=== PATIENT | female | born 1950 | race Two or more races ===

== ENCOUNTER 2024-12-13 04:01 | Inpatient (IN) | payer OTHER, MEDICAID ==
[~2024-12-13] VITALS: Ht 157.5 cm; Wt 59.1 kg
[2024-12-13] MEDS ORDERED: EPINEPHrine HCL 250 ML IV ONE (04:10)
--- NOTE | 2024-12-13 04:24 | ED.PDOC ---
CPR-HPI HPI Comments 74 y/o F, with a limited known history of pulmonary fibrosis on supplemental oxygen, cardiomyopathy, and osteoarthritis on hospice, is BIBA from private residence for c/c of cardiac arrest. Per EMS personnel report, call received at 0304 by family after finding patient unresponsive on the floor after using the bathroom . The patient was brought to the bedroom, started on oxygen via mask maximum rate. Family Contacted 911. Family members noted patient's respiratory rate starting to decline. EMS arrived on scene at 0314. No bystander CPR performed prior to EMS arrival. Patient was, initially, apneic and pulseless, a blood glucose of 259, and no signs of trauma. Interventions en route: 13x rounds of CPR, 6x epinephrine rounds (last administered at 0353), 1x Calcium, 1x Bicarb, and 7.0 endotracheal tube placement at 23cm at the teeth. 1x shock for 1x incidence of V-fib transition prior to returning to asystole at 0350. Arrival to ED at 0357, with a estimated total downtime of 50-60 minutes. Care resume by ED staff. Family/sprinkler inspector historians absent. Additional noted history of DNR; EMS personnel reports on family not having DNR/DNI documentation on scene. Initial Physical exam General: Patient is unresponsive HEENT: Pupils fixed, dilated, nonreactive. There is no corneal reflex. Cardiac: No pulses palpated Abdomen: Soft, nondistended Respiratory: No spontaneous respirations, no breath sounds auscultated Extremities: No edema Neuro: GCS 3, patient is unresponsive to painful stimulus, ROS: Unable to obtain Time Seen by MD: 03:57 Reviewed Notes: Nurses Notes, Reel Hooker Notes, Medications, Allergies Allergies: Coded Allergies: Morphine (Verified Allergy, Unknown, 12/13/24) Information Source: Emergency Med Personnel Mode of Arrival: EMS Timing: Hours Duration: Down time prior EMS: (12-15 minutes ), Total time prior hopital: (50- 60 minutes) Onset: Other (unwitnessed ) Available Hx: Prior Cardiac Disease Inital rhythm: Asystole Treatment: CPR, Intubation, Defibrillation, Epinephrine, Other (Calcium and bicarbonate ) Response: No response Associated signs and symptoms: None Past Medical History PAST MEDICAL HISTORY: Arthritis (osteoarthritis) Past Medical History (Other): cardiomyopathy pulmonary fibrosis Surgical History: Unknown, Unobtainable SUPERVISOR [employer] History: Unknown, Unobtainable Family History Family History: Unknown, Unobtainable Social History Smoker: Unknown, Unobtainable Alcohol: Unknown, Unobtainable Drugs: Unknown, Unobtainable Lives In: Home, Assisted Care Was a procedure done? Was a procedure done?: Yes Sedation Sedation?: No Central Line Recorder of insertion practice: Mds Coordinator Occupation of diversified crops i farmworker: Attending Physician Indication: Volume resuscitation, Inability to obtain IV Room prepared for procedure: Yes Mds Coordinator performed hand hygien: Yes Maximal sterile barrier precau: Mask/Eye shield, Sterile gown, Cap, Sterlie gloves, Large sterlie drape Skin Preparation: Chlorhexidine gluconate, Providine iodine, Alcohol Skin preparation completely dr: Yes Insertion site: Right, Femoral Central line catheter type: [id number]-rnikvbry-viz dialysis Number of lumens: 3 Central line exchanged over a: No Antiseptic ointment applied to: No Post Assessment: Chest X-Ray, Proper placement Informed consent obtained: Yes Risks/benefits/alt described: Yes Differential Dx CPR Differential Diagnosis: Cardiopulmonary arrest, Dysrhythmia, Electrolyte disorder, Heart Block, Myocardial Infarction, Pulmonary Embolus, Respiratory Failure X-Ray, Labs, Meds, VS Vital Signs Date Time Temp Pulse Resp B/P (MAP) Pulse Ox O2 Delivery O2 Flow Rate FiO2 12/13/24 08:40 95.2 106 21 117/46 (69) 95 95.2 12/13/24 08:15 107 34 108/75 (86) 95 100 12/13/24 08:15 108/75 12/13/24 08:15 108/75 12/13/24 08:15 108/75 12/13/24 08:15 108/75 12/13/24 08:00 106 12/13/24 07:42 208.6 0 0 0 Ambu-Bag 0 0 12/13/24 07:35 104 14 96 Mechanical Ventilator+ 100 100 12/13/24 07:35 93.7 104 14 120/38 (65) 96 93.7 12/13/24 07:15 112/55 12/13/24 07:15 112/55 12/13/24 07:06 101 12/13/24 07:00 93.4 96 13 88/53 (65) 97 93.4 12/13/24 07:00 /53 12/13/24 07:00 88/53 12/13/24 06:45 93.0 99 13 92/34 (53) 97 93.0 12/13/24 06:30 92.8 98 13 91/41 (58) 97 92.8 12/13/24 06:15 92.8 98 13 86/30 (48) 97 92.8 12/13/24 06:15 86/30 12/13/24 06:15 86/30 12/13/24 06:07 Mechanical Ventilator+ 100 100 12/13/24 06:00 92.8 97 14 97/30 (52) 94 92.8 12/13/24 06:00 97/30 12/13/24 05:53 97 27 94/29 (50) 98 100 12/13/24 05:45 93.0 97 14 95/26 (49) 94 93.0 12/13/24 05:30 93.2 94 24 88/29 (48) 94 93.2 12/13/24 05:15 93.6 94 24 106/35 (58) 95 93.6 12/13/24 05:15 102/33 12/13/24 05:11 95 12/13/24 05:00 94.6 99 24 126/46 (72) 87 94.6 12/13/24 05:00 126/46 12/13/24 04:45 95.0 71 24 75/27 (43) 87 95.0 12/13/24 04:45 79/27 12/13/24 04:30 60 24 100/68 (79) 86 100 12/13/24 04:21 60 12/13/24 04:06 98.1 135 20 53/17 (29) 93 98.1 12/13/24 04:01 98.1 0 0 0/0 0 98.1 Lab Test 12/13/24 07:35 12/13/24 06:01 12/13/24 05:30 12/13/24 05:00 Range/Units Lactic Acid Level 10.6 *H 11.9 *H 0.4-2.0 mmol/L Troponin I High Sensitivity 2695 *H 687 *H </=34 ng/L Blood Gas Specimen Type Arterial Blood Gas Sample Site Left brachial Blood Gas Patient Temperature 37.0 Arterial Blood Date Drawn [id number] Arterial Blood pH 6.922 *L 7.350-7.450 Arterial Blood Partial Pressure CO2 64.0 *H 32.0-45.0 mmHg Arterial Blood Partial Pressure O2 130.1 H 83.0-108.0 mmHg Arterial Blood HCO3 12.9 L 21.0-28.0 mmol/L Arterial Blood Oxygen Saturation 95.7 94.0-98.0 % Arterial Blood Base Excess -19.6 L -2.0-3.0 mmol/L Arterial Blood Oxyhemoglobin 94.6 94.0-98.0 % Arterial Blood Carboxyhemoglobin 0.3 L 0.5-1.5 % Arterial Blood Methemoglobin 0.9 0.0-1.5 % Enrique Test N/a Blood Gas Total Hemoglobin 11.40 L 12.0-16.0 g/dL Blood Gas Set Respiration Rate 24.0 Blood Gas Modality Vent - ac FiO2 % 100.0 Blood Gas Tidal Volume 300.0 Blood Gas PEEP or CPAP 5.0 Blood Gas Critical Value Read Back yes Blood Gas Notified Whom peter Luis md Blood Gas Notified Time [id number] Blood Gas Notified By Manufacturing Cost Estimator dane diaz Prothrombin Time 20.5 H 9.3-11.8 sec Prothrombin Time INR 2.08 H 0.9-1.15 Influenza Type A Antigen Negative Negative Influenza Type B Antigen Negative Negative SARS-CoV-2 Antigen (Rapid) Negative NEGATIVE Test 12/13/24 04:09 Range/Units White Blood Count 22.5 H 4.4-10.8 10^3/uL Red Blood Count 3.56 L 4.0-5.20 10^6/uL Hemoglobin 10.5 L 12.2-16.2 g/dL Hematocrit 34.4 L 36.0-46.0 % Mean Corpuscular Volume 96.5 80.0-100.0 fL Mean Corpuscular Hemoglobin 29.4 28.0-32.0 pg Mean Corpuscular Hemoglobin Concent 30.4 L 32.0-36.0 g/dL Red Cell Distribution Width 17.1 H 11.8-14.3 % Platelet Count 82 L 140-450 10^3/uL Mean Platelet Volume 8.6 6.9-10.8 fL Neutrophils (%) (Auto) 37.0-80.0 % Lymphocytes (%) (Auto) 10.0-50.0 % Monocytes (%) (Auto) 0.0-12.0 % Basophils (%) (Auto) 0.0-2.0 % Neutrophils # (Auto) 1.6-8.6 10 ^3/uL Lymphocytes # (Auto) 0.4-5.4 10 ^3/uL Monocytes # (Auto) 0-1.3 10 ^3/uL Differential Total Cells Counted 100.0 100 Neutrophils % (Manual) 28 L 37.0-80.0 Band Neutrophils % (Manual) 2 Lymphocytes % (Manual) 58 H 10.0-50.0 Monocytes % (Manual) 8 0-12 Eosinophils % (Manual) 3 0-7 Basophils % (Manual) 0 0.0-2.0 Metamyelocytes % (manual) 0 Myelocytes % (Manual) 1 Promyelocytes % (Manual) 0 Blast Cells % (Manual) 0 Reactive Lymphocytes 0 Platelet Estimate Decreased Sodium Level 147 H 136-145 mmol/L Potassium Level 5.4 H 3.5-5.1 mmol/L Chloride Level 105 98-107 mmol/L Carbon Dioxide Level 23 20-31 mmol/L Anion Gap 19 H 5-15 Blood Urea Nitrogen 19 9-23 mg/dL Creatinine 1.02 0.550-1.02 mg/dL Glomerular Filtration Rate Calc 58 >90 mL/min BUN/Creatinine Ratio 18.6 10.0-20.0 Serum Glucose 208 H 74-106 mg/dL Calcium Level 9.6 8.7-10.4 mg/dL Magnesium Level 2.6 1.6-2.6 mg/dL Total Bilirubin 0.5 0.2-1.0 mg/dL Aspartate Amino Transferase (AST) 5194 H 13-40 U/L Alanine Aminotransferase (ALT) 2779 H 7-40 U/L Alkaline Phosphatase 136 H 46-116 U/L Troponin I High Sensitivity 33 </=34 ng/L B-Type Natriuretic Peptide 249.94 0-100 pg/mL Total Protein 5.5 L 5.7-8.2 g/dL Albumin 2.9 L 3.2-4.8 g/dL Lipase 31 12-53 U/L Thyroid Stimulating Hormone (TSH) 13.76 H 0.55-4.78 uIU/mL Plasma/Serum Blood Alcohol < 3.0 <10 mg/dL Current Medications Medications (Trade) Dose Ordered Sig/Asif Route Start Time Stop Time Status Last Admin Norepinephrine Bitartrate 250 ml @ 3.75 mls/hr Q24H IV 12/13/24 04:45 12/13/24 17:25 DC 12/13/24 10:15 Epinephrine HCl 250 ml @ 7.5 mls/hr Q24H IV 12/13/24 05:00 12/13/24 17:25 DC 12/13/24 05:00 Ceftriaxone Sodium 50 ml @ 100 mls/hr ONCE ONCE IV 12/13/24 05:30 12/13/24 05:59 DC 12/13/24 06:00 Vasopressin 20 units/Sodium Chloride 100 ml @ 9 mls/hr Q11H7M IV 12/13/24 05:45 12/13/24 17:25 DC 12/13/24 06:15 Sodium Chloride 1,000 ml @ 130 mls/hr Q7H42M IV 12/13/24 06:30 12/13/24 09:07 DC 12/13/24 06:30 Phenylephrine HCl 250 ml @ 30 mls/hr Q8H20M IV 12/13/24 07:00 12/13/24 17:25 DC 12/13/24 07:00 Time of 1ST Reevaluation: 04:27 Reevaluation 1ST: Unchanged Patient Education/Counseling: Pt Unresponsive Family Education/Counseling: Other SEPSIS Sepsis Screen Physician Orders Chest Xray 1 View (12/13/24 04:08) Blood Culture (12/13/24 04:08) Ventilator Setup (12/13/24 04:26) Chest Portable (12/13/24 05:53) Vital Signs Date Time Temp Pulse Resp B/P (MAP) Pulse Ox O2 Delivery O2 Flow Rate FiO2 12/13/24 08:40 95.2 106 21 117/46 (69) 95 95.2 12/13/24 08:15 107 34 108/75 (86) 95 100 12/13/24 08:15 108/75 12/13/24 08:15 108/75 12/13/24 08:15 108/75 12/13/24 08:15 108/75 12/13/24 08:00 106 12/13/24 07:42 208.6 0 0 0 Ambu-Bag 0 0 12/13/24 07:35 104 14 96 Mechanical Ventilator+ 100 100 12/13/24 07:35 93.7 104 14 120/38 (65) 96 93.7 12/13/24 07:15 112/55 12/13/24 07:15 112/55 12/13/24 07:06 101 12/13/24 07:00 93.4 96 13 88/53 (65) 97 93.4 12/13/24 07:00 88/53 12/13/24 07:00 88/53 12/13/24 06:45 93.0 99 13 92/34 (53) 97 93.0 12/13/24 06:30 92.8 98 13 91/41 (58) 97 92.8 12/13/24 06:15 92.8 98 13 86/30 (48) 97 92.8 12/13/24 06:15 86/30 12/13/24 06:15 86/30 12/13/24 06:07 Mechanical Ventilator+ 100 100 12/13/24 06:00 92.8 97 14 97/30 (52) 94 92.8 12/13/24 06:00 97/30 12/13/24 05:53 97 27 94/29 (50) 98 100 12/13/24 05:45 93.0 97 14 95/26 (49) 94 93.0 12/13/24 05:30 93.2 94 24 88/29 (48) 94 93.2 12/13/24 05:15 93.6 94 24 106/35 (58) 95 93.6 12/13/24 05:15 102/33 12/13/24 05:11 95 12/13/24 05:00 94.6 99 24 126/46 (72) 87 94.6 12/13/24 05:00 126/46 12/13/24 04:45 95.0 71 24 75/27 (43) 87 95.0 12/13/24 04:45 79/27 12/13/24 04:30 60 24 100/68 (79) 86 100 12/13/24 04:21 60 12/13/24 04:06 98.1 135 20 53/17 (29) 93 98.1 12/13/24 04:01 98.1 0 0 0/0 0 98.1 Laboratory Tests Test 12/13/24 04:09 12/13/24 05:30 12/13/24 07:35 White Blood Count 22.5 10^3/uL (4.4-10.8) H Lactic Acid Level 11.9 mmol/L (0.4-2.0) *H 10.6 mmol/L (0.4-2.0) *H Departure 1 Departure Time of Disposition: 05:24 Impression: Primary Impression: Cardiac arrest with successful resuscitation Additional Impressions: Pulmonary fibrosis CHF (congestive heart failure) Disposition: ADMITTED INPATIENT Condition: Critical Comments MDM 74 year old female presented to the ED in Cardiac arrest with resuscitation efforts in progress. Cardiac compressions were continued by staff in order to sustain blood flow. The patient was ventilated and oxygenated. The patient received appropriate ACLS measures and these were repeated as necessary throughout the resuscitation. CPR was performed under my direct supervision and guidance. See patient resuscitation status note for medications and times given. Critical care time spent > 30 minutes in coordination of efforts for cardiopulmonary resuscitation. Family members were notified of the patients status and prognosis. After ROSC patient was started on epinephrine drip then levophed drip for hypotension. IVF administered carefully due to history of CHF and suspected pulmonary edema on CXR. Patient admitted to hospitalist service for further treatment, evaluation and monitoring. Critical Care Note Critical Care Time?: Yes (55 min-critical care time only) Critical care comment: Due to a high probability of clinically significant, life threatening deterioration, the patient required my highest level of preparedness to intervene emergently and I personally spent this critical care time directly and personally managing the patient. This critical care time included obtaining a history; examining the patient; pulse oximetry; ordering and review of studies; arranging urgent treatment with development of a management plan; evaluation of patient's response to treatment; frequent reassessment; and, discussions with other providers. This critical care time was performed to assess and manage the high probability of imminent, life-threatening deterioration that could result in multi-organ failure. It was exclusive of separately billable procedures and treating other patients and teaching time. Please see my other sections and the rest of the note for further information on patient assessment and treatment. Heart Score Heart Score: Heart Score Response (Comments) Value History N/A 0 EKG N/A 0 Age N/A 0 Risk Factors N/A 0 Troponin N/A 0 Total 0 Stability Stability form required: KIMI Patterson MD Dec 13, 2024 04:24
[2024-12-13] MEDS ORDERED: NOREPINEPHRINE 8 MG/250ML KIT 250 ML IV SCH (04:45)
[2024-12-13] MEDS: NOREPINEPHRINE 8 MG/250ML KIT 250 ML IV SCH (04:45)
[2024-12-13 04:50] LABS: Anion Gap 19 (5-15); BUN/Creatinine Ratio 18.6 (10.0-20.0); Blood Urea Nitrogen 19 mg/dL (9-23); Calcium 9.6 mg/dL (8.7-10.4); Carbon Dioxide 23 mmol/L (20-31); Chloride 105 mmol/L (98-107); Glucose 208 mg/dL (74-106); Potassium 5.4 mmol/L (3.5-5.1); Sodium 147 mmol/L (136-145)
[2024-12-13 04:51] LABS: Albumin 2.9 g/dL (3.2-4.8); Bilirubin, Total 0.5 mg/dL (0.2-1.0); Magnesium 2.6 mg/dL (1.6-2.6); Total Protein 5.5 g/dL (5.7-8.2)
[2024-12-13] MEDS: NOREPINEPHRINE 8 MG/250ML KIT 250 ML IV ONE (04:52)
[2024-12-13 04:55] LABS: Hematocrit 34.4 % (36.0-46.0); Hemoglobin 10.5 g/dL (12.2-16.2); Mean Corpuscular Hemoglobin 29.4 pg (28.0-32.0); Mean Corpuscular Volume 96.5 fL (80.0-100.0)
--- NOTE | 2024-12-13 04:57 | DVH ---
CHEST RADIOGRAPH Indication: AMS Technique: Single frontal view of the chest was obtained COMPARISON: None FINDINGS: Lines and Tubes: Endotracheal tube tip directed within the left mainstem bronchus, approximately 6 mm distal to the level of the criselda. Enteric catheter terminates just beyond the level of the gastroes ophageal junction. Lungs: Diffuse interstitial and pulmonary vascular prominence and multifocal bilateral pulmonary airs pace disease. No definite evidence of pleural effusion. No pneumothorax. Cardiomediastinal contours: Unremarkable Bones: Unremarkable IMPRESSION: 1. Endotracheal tube tip directed within the left mainstem bronchus, approximately 6 mm distal to the level of the criselda. Recommend retraction by at least 2 cm. 2. Enteric catheter terminates just beyond the level of the gastroesophageal junction. Recommend adva ncement by 5 cm. 3. Diffuse interstitial and pulmonary vascular prominence and multifocal bilateral pulmonary airspace disease.
[2024-12-13] MEDS: EPINEPHrine HCL 250 ML IV SCH (05:00)
[2024-12-13] MEDS ORDERED: MIDAZOLAM DRIP 50 mg/50mL 50 ML IV SCH (05:15)
[2024-12-13 05:18] LABS: Lipase 31 U/L (12-53)
[2024-12-13 05:22] LABS: Alkaline Phosphatase 136 U/L (46-116)
--- NOTE | 2024-12-13 05:30 | ECG ---
[facility] Test Date: 2024-12-13 Test Time: 05:11:20 Pat Name: CARLOS JOY Department: [facility] ED Room: [address] [place] [address] Gender: F Airline Counter Agent: LUIS : 1950 Requested By: KIMI HALE Order Number: [id number] Reading MD: Ji Jaimes Measurements Intervals [place] Rate: 95 P: 66 VT: 146 QRS: 109 QRSD: 83 T: 0 QT: 407 QTc: 512 Interpretive Statements Sinus rhythm Right axis deviation Low voltage, extremity leads Abnormal R-wave progression, late transition Minimal ST depression, diffuse leads Prolonged QT interval Electronically Signed On 12-19-2024 13:46:55 PDT by Ji Jaimes Please click the below link to view image of tracing.
--- NOTE | 2024-12-13 05:30 | ECG ---
[facility] Test Date: 2024-12-13 Test Time: 04:21:03 Pat Name: CARLOS JOY Department: [facility] ED Room: [address] [place] [address] Gender: F Leach Cell Operator: LUIS : 1950 Requested By: KIMI HALE Order Number: [id number] Reading MD: Ji Jaimes Measurements Intervals [place] Rate: 60 P: -81 MA: 142 QRS: 117 QRSD: 119 T: -36 QT: 514 QTc: 514 Interpretive Statements Ectopic atrial rhythm Incomplete right bundle branch block Probable posterior infarct, acute Consider inferior wall MD, acute Electronically Signed On 12-19-2024 13:46:47 PDT by Ji Jaimes Please click the below link to view image of tracing.
[2024-12-13 05:34] LABS: Total Cells Counted 100.0 (100)
[2024-12-13 06:13] LABS: INR 2.08 (0.9-1.15); Prothrombin Time 20.5 sec (9.3-11.8)
[2024-12-13] MEDS: VASOPRESSIN 20 UNITS in SODIUM CHL 0.9% 99 ML IV SCH (06:15)
[2024-12-13 06:19] LABS: Base Excess -19.6 mmol/L (-2.0-3.0)
[2024-12-13 06:19] LABS: COVID19 ANTIGEN SOFIA FIA NEGATIVE (NEGATIVE)
[2024-12-13] MEDS: VASOPRESSIN 20 UNIT/ML ONE (06:19)
[2024-12-13 06:29] LABS: Lactic Acid w/Reflex 11.9 mmol/L (0.4-2.0)
[2024-12-13] MEDS: SODIUM CHLORIDE 0.9% 1,000 ML IV SCH (06:30)
[2024-12-13 06:34] LABS: Alanine Aminotransferase 2779 U/L (7-40)
--- NOTE | 2024-12-13 06:57 | DVH ---
CHEST RADIOGRAPH Indication: ETT RETRACTION Technique: Single frontal view of the chest was obtained COMPARISON: XY CHEST XRAY 1 VIEW on DOS: 12/13/24 FINDINGS: Lines and Tubes: Endotracheal tube remains low in position projecting towards the left mainstem bronc hus. Enteric catheter in satisfactory position. Lungs: Severe multifocal airspace disease. Pleura: No effusion. No pneumothorax. Cardiomediastinal contours: Unremarkable Bones: Unremarkable IMPRESSION: Endotracheal tube remains low in position projecting towards the left mainstem bronchus. Recommend retraction by 2 cm.
[2024-12-13] MEDS: PHENYLEPHRINE IV 250 ML IV SCH (07:00)
[2024-12-13 07:35] VITALS: PULSE 104; RESP 14; O2SAT 96
--- NOTE | 2024-12-13 07:42 | RESUS ---
CODE BLUE ASSESSSMENT History of Events History of Events: 74 y/o F, with a limited known history of pulmonary fibrosis on supplemental oxygen, cardiomyopathy, and osteoarthritis on hospice, is BIBA from private residence for c/c of cardiac arrest. Per EMS personnel report, call received at 0304 by family after finding patient unresponsive on the floor after using the bathroom . The patient was brought to the bedroom, started on oxygen via mask maximum rate. Family Contacted 911. Family members noted patient's respiratory rate starting to decline. EMS arrived on scene at 0314. No bystander CPR performed prior to EMS arrival. Patient was, initially, apneic and pulseless, a blood glucose of 259, and no signs of trauma. Interventions en route: 13x rounds of CPR, 6x epinephrine rounds (last administered at 0353), 1x Calcium, 1x Bicarb, and 7.0 endotracheal tube placement at 23cm at the teeth. 1x shock for 1x incidence of V-fib transition prior to returning to asystole at 0350. Arrival to ED at 0357, with a estimated total downtime of 50-60 minutes. Care resume by ED staff. Family/track repairer helper historians absent. Additional noted history of DNR; EMS personnel reports on family not having DNR/DNI documentation on scene. Initial Information Date: Dec 13, 2024 Time: 03:57 Location of Arrest: In Field Arrest Witnessed: Yes CPR started initial time: 03:14 CPR started by whom: EMS Pre-Hospital Care: ACLS Type of arrest: Cardiac, Respiratory, Adult, Unwitnessed Spontaneous Respirations: No Pulse Present: No Monitoring: ECG, Pulse Oximetry, Apnea, Telemetry Crash Cart Opened and Supplies: Yes Airway Ventilation Breathing at Onset: Apneic O2 Sat by Pulse Oximetry: 0 Oxygen Delivery Method: Ambu-Bag Oxygen 100% Time of first Assisted Ventila: 03:58 Intubation Time: 03:58 Intubation Size: 7.0 cuffed Intubated by: DR HALE Intubation Attempts: 1 Intubated orally: Yes Intubated Nasaly: No Tube secured at: 23 Cricoid pressure done: No CO2 indicator used: Yes Confirmation: Auscultation Suctioning (Oral/Tracheal): No Circulation Circulation : Time: 03:57 Pulse Rate (adult): 0 Blood Pressure Systolic: 0 Blood Pressure Diastolic: 0 Temperature (Fahrenheit): 098.1 Procedure - IV Procedure - IV : IV start time: 03:59 IV Side: Left IV Location: Antecubital IV Catheter Type: Saline Lock IV Placed by GRECIA GILLIAM IV Gauge: 20 IV Line Care: Saline Flush Procedure - Intraosseous Site of Intraosseous: Tibia yelena-medial Comment: DONE BY EMS PRIOR TO ARRIVAL Medications & Response Medications and Responses #1: Medication Time: 03:59 ADULT Medications Given ADULT: Epinephrine 1 mg, Sodium Bacarbinate 50 meq, Magnesium Sulfate 2 gm Route of Administration: IO Heart Rate: 0 EKG Rhythm: Asystole Blood Pressure Systolic: 0 Blood Pressure Diastolic: 0 Respiratory Rate: 0 O2 Sat by Pulse Oximetry: 0 Comment 0402 ROSC P 165, BP 58/17 [address]406 AMIODORONE [address] HALE. 0407 NO PULSE Medications and Responses #2: Medication Time: 04:07 ADULT Medications Given ADULT: Epinephrine 1 mg Route of Administration: IV Heart Rate: 0 EKG Rhythm: PEA Blood Pressure Systolic: 0 Blood Pressure Diastolic: 0 Respiratory Rate: 0 O2 Sat by Pulse Oximetry: 0 EKG Rhythm: PEA Comment 0410 NO PULSE Medications and Responses #3: Medication Time: 04:10 ADULT Medications Given ADULT: Epinephrine 1 mg Route of Administration: IV Heart Rate: 0 EKG Rhythm: PEA Blood Pressure Systolic: 0 Blood Pressure Diastolic: 0 Respiratory Rate: 0 O2 Sat by Pulse Oximetry: 0 EKG Rhythm: Atrial Fibrillation Comment 0413 ROSCHR 72 A FIB BP 100/68 PT STARTED ON EPINEPHRINE DRIP. 0422 BRADYCARDIC ATROPINE 1MG GIVEN, 0423 NO PULSE Medications and Responses #4: Medication Time: 04:23 ADULT Medications Given ADULT: Epinephrine 1 mg Route of Administration: IV Heart Rate: 0 EKG Rhythm: PEA Blood Pressure Systolic: 0 Blood Pressure Diastolic: 0 Respiratory Rate: 0 O2 Sat by Pulse Oximetry: 0 EKG Rhythm: Sinus Rhythm Comment 0426 ROSC HR 91 BP144/70 SAT 95 Pacing Pacer Pads Applied and Pacing: Yes Procedure - Central Venous Cat Central venous catheter time: 04:23 Central venous catheter site: Rt Femoral Central Venous Catheter Insert: DR NOVAK Nurses Notes [place] Coma Scale Eye Opening: None (1) [place] Coma Scale Verbal: None (1) [place] Coma Scale Motor: None (1) Pupil Reaction: Non Reactive EKG Rhythm: Sinus Rhythm Time Code Ended Time Code Ended: 04:26 Post Arrest Status: Ventilated Outcome of code: Successful Code Team Present: CARA HEART RN HS, MIKE LOOP CUTTER, RULA RN, MIREILLE RN, VALENTINO RN,HANS ERT, OTILIO ERT, LISA RT, BRAULIO RT, LISA RT. Post Resuscitation Neurologica Pupil Size: 4 ROSC Pt Meets Criteria for Therapeu: No Therapeutic Hyperthermia Start: CARA Murillo Dec 13, 2024 07:42
--- NOTE | 2024-12-13 09:33 | DVHHP2 ---
History of Present Illness Reason for Visit: CPR History of Present Illness Virginie Whiting is a 74-year-old female with past medical history of pulmonary fibrosis, and CHF, who was brought to the hospital VIA EMS with CPR in progress. The family states she was discharged home on hospice from [place] about 2 weeks ago. This morning she got up to use the restroom and on her way back she fell to the ground. Her daughter was there and states she did not respond to her and just had a blank stare. She called for her other siblings to help. They called the hospice company and were told there was nothing to do. So they then called EMS. When EMS arrived the family told them she is a DNR, but did not have the paperwork readily available so EMS states they had to do everything. Patient was brought to the ER, intubated, CPR continued. Patient had multiple code blues while in the ER. The ER provider did speak with the family and make the patient a DNR. On my arrival and assessment the patient was intubated, on 4 vasopressors, and no sedation with no meaningful neurological responses. Family was at the bedside and states that she never wanted any of this and would like to make her comfortable. Will do a compassionate extubation once all family is able to arrive. Cardiovascular: CHF Pulmonary: Other (Pulmonary Fibrosis) Smoke: No ALCOHOL: none Drugs: None Lives: with Family Domestic Violence: Neg Review of Systems Allergies: Coded Allergies: Morphine (Verified Allergy, Unknown, 12/13/24) Medications Current Medications Medications Dose Ordered Sig/Asif Route Start Time Stop Time Status Last Admin Dose Admin Norepinephrine Bitartrate 250 ml @ 3.75 mls/hr Q24H IV 12/13/24 04:45 12/13/24 04:45 18.75 MLS/HR Epinephrine HCl 250 ml @ 7.5 mls/hr Q24H IV 12/13/24 05:00 12/13/24 05:00 37.5 MLS/HR Midazolam HCl 50 ml @ 1 mls/hr Q24H IV 12/13/24 05:15 Vasopressin 20 units/Sodium Chloride 100 ml @ 9 mls/hr Q11H7M IV 12/13/24 05:45 12/13/24 06:15 9 MLS/HR Sodium Chloride 1,000 ml @ 130 mls/hr Q7H42M IV 12/13/24 06:30 12/13/24 06:30 130 MLS/HR Phenylephrine HCl 250 ml @ 30 mls/hr Q8H20M IV 12/13/24 07:00 12/13/24 07:00 30 MLS/HR Exam Vital Signs Vital Signs Date Time Temp Pulse Resp B/P (MAP) Pulse Ox O2 Delivery O2 Flow Rate FiO2 12/13/24 08:00 106 12/13/24 07:42 208.6 0 0 Ambu-Bag 0 12/13/24 07:35 100 100 12/13/24 07:35 120/38 (65) Respiratory: Other (Intubated) Psych/Mental Status: Other (Intubated, not sedated, no meaningful neurological responses) Labs/Xrays Labs Test 12/13/24 07:35 12/13/24 06:01 12/13/24 05:30 12/13/24 05:00 Range/Units Lactic Acid Level 10.6 *H 0.4-2.0 mmol/L Troponin I High Sensitivity 2695 *H </=34 ng/L Blood Gas Specimen Type Arterial Blood Gas Sample Site Left brachial Blood Gas Patient Temperature 37.0 Arterial Blood Date Drawn [id number] Arterial Blood pH 6.922 *L 7.350-7.450 Arterial Blood Partial Pressure CO2 64.0 *H 32.0-45.0 mmHg Arterial Blood Partial Pressure O2 130.1 H 83.0-108.0 mmHg Arterial Blood HCO3 12.9 L 21.0-28.0 mmol/L Arterial Blood Oxygen Saturation 95.7 94.0-98.0 % Arterial Blood Base Excess -19.6 L -2.0-3.0 mmol/L Arterial Blood Oxyhemoglobin 94.6 94.0-98.0 % Arterial Blood Carboxyhemoglobin 0.3 L 0.5-1.5 % Arterial Blood Methemoglobin 0.9 0.0-1.5 % Enrique Test N/a Blood Gas Total Hemoglobin 11.40 L 12.0-16.0 g/dL Blood Gas Set Respiration Rate 24.0 Blood Gas Modality Vent - ac FiO2 % 100.0 Blood Gas Tidal Volume 300.0 Blood Gas PEEP or CPAP 5.0 Blood Gas Critical Value Read Back yes Blood Gas Notified Whom peter Luis md Blood Gas Notified Time [id number] Blood Gas Notified By Functional Tester dane diaz Prothrombin Time 20.5 H 9.3-11.8 sec Prothrombin Time INR 2.08 H 0.9-1.15 Influenza Type A Antigen Negative Negative Influenza Type B Antigen Negative Negative SARS-CoV-2 Antigen (Rapid) Negative NEGATIVE Test 12/13/24 04:09 Range/Units White Blood Count 22.5 H 4.4-10.8 10^3/uL Red Blood Count 3.56 L 4.0-5.20 10^6/uL Hemoglobin 10.5 L 12.2-16.2 g/dL Hematocrit 34.4 L 36.0-46.0 % Mean Corpuscular Volume 96.5 80.0-100.0 fL Mean Corpuscular Hemoglobin 29.4 28.0-32.0 pg Mean Corpuscular Hemoglobin Concent 30.4 L 32.0-36.0 g/dL Red Cell Distribution Width 17.1 H 11.8-14.3 % Platelet Count 82 L 140-450 10^3/uL Mean Platelet Volume 8.6 6.9-10.8 fL Neutrophils (%) (Auto) 37.0-80.0 % Lymphocytes (%) (Auto) 10.0-50.0 % Monocytes (%) (Auto) 0.0-12.0 % Basophils (%) (Auto) 0.0-2.0 % Neutrophils # (Auto) 1.6-8.6 10 ^3/uL Lymphocytes # (Auto) 0.4-5.4 10 ^3/uL Monocytes # (Auto) 0-1.3 10 ^3/uL Differential Total Cells Counted 100.0 100 Neutrophils % (Manual) 28 L 37.0-80.0 Band Neutrophils % (Manual) 2 Lymphocytes % (Manual) 58 H 10.0-50.0 Monocytes % (Manual) 8 0-12 Eosinophils % (Manual) 3 0-7 Basophils % (Manual) 0 0.0-2.0 Metamyelocytes % (manual) 0 Myelocytes % (Manual) 1 Promyelocytes % (Manual) 0 Blast Cells % (Manual) 0 Reactive Lymphocytes 0 Platelet Estimate Decreased Sodium Level 147 H 136-145 mmol/L Potassium Level 5.4 H 3.5-5.1 mmol/L Chloride Level 105 98-107 mmol/L Carbon Dioxide Level 23 20-31 mmol/L Anion Gap 19 H 5-15 Blood Urea Nitrogen 19 9-23 mg/dL Creatinine 1.02 0.550-1.02 mg/dL Glomerular Filtration Rate Calc 58 >90 mL/min BUN/Creatinine Ratio 18.6 10.0-20.0 Serum Glucose 208 H 74-106 mg/dL Calcium Level 9.6 8.7-10.4 mg/dL Magnesium Level 2.6 1.6-2.6 mg/dL Total Bilirubin 0.5 0.2-1.0 mg/dL Aspartate Amino Transferase (AST) 5194 H 13-40 U/L Alanine Aminotransferase (ALT) 2779 H 7-40 U/L Alkaline Phosphatase 136 H 46-116 U/L B-Type Natriuretic Peptide 249.94 0-100 pg/mL Total Protein 5.5 L 5.7-8.2 g/dL Albumin 2.9 L 3.2-4.8 g/dL Lipase 31 12-53 U/L Thyroid Stimulating Hormone (TSH) 13.76 H 0.55-4.78 uIU/mL Plasma/Serum Blood Alcohol < 3.0 <10 mg/dL CHEST RADIOGRAPH FINDINGS: Lines and Tubes: Endotracheal tube remains low in position projecting towards the left mainstem bronchus. Enteric catheter in satisfactory position. Lungs: Severe multifocal airspace disease. Pleura: No effusion. No pneumothorax. Cardiomediastinal contours: Unremarkable Bones: Unremarkable IMPRESSION: Endotracheal tube remains low in position projecting towards the left mainstem bronchus. Recommend retraction by 2 cm. SEPSIS Sepsis Screen Date sepsis recognized/suspect: Dec 13, 2024 Time Sepsis recognized/suspect: 0735 Recent Procedure: No On Antibiotic Therapy: No Respiratory Rate >20: No Heart Rate >90: Yes Temp<36 C (96.8 F) or >38.3 C: Yes SBP <90 or MAP <65 mmHG: No New Acute Mental Status Change: Yes Is the patient on CPAP, BIPAP,: Yes Physician Orders Drug Screen (12/13/24 04:08) Urinalysis (12/13/24 04:08) Head Without Contrast (12/13/24 04:08) Chest Xray 1 View (12/13/24 04:08) Blood Culture (12/13/24 04:08) Abg W/ Co-Ox (12/13/24 04:08) Saline Lock (12/13/24 04:08) Quantitative Analyst Developer (12/13/24 ) Straight Cath. (12/13/24 ) Electrocardigram (12/13/24 21:21) Electrocardigram (12/13/24 05:08) Electrocardigram (12/13/24 07:08) Electrocardigram (12/13/24 05:08) Electrocardigram (12/13/24 05:08) Electrocardigram (12/13/24 07:08) Abg W/ Co-Ox (12/13/24 04:26) Respiratory Culture W/ Gs (12/13/24 04:26) Ventilator Setup (12/13/24 04:26) Norepinephrine 8 Mg/250ml Kit (Levophed) (12/13/24 04:45) Epinephrine Hcl (12/13/24 05:00) Midazolam Drip 50 Mg/50ml (Versed Drip 5 (12/13/24 05:15) Rass Sedation Scale Q1HR (12/13/24 05:09) Sodium Chl 0.9% (So... W/Vasopressin (12/13/24 05:45) Communication Order (12/13/24 04:45) Communication Order (12/13/24 05:00) Communication Order (12/13/24 05:15) Chest Portable (12/13/24 05:53) Sodium Chloride 0.9% (12/13/24 06:30) Phenylephrine Iv (Phenylephrine/Ns) (12/13/24 07:00) Admit (12/13/24 08:52) Code Status (12/13/24 08:52) Npo (Nothing By Mouth) Diet (12/13/24 Breakfast) Condition: Unstable (12/13/24 08:52) Vital Signs Date Time Temp Pulse Resp B/P (MAP) Pulse Ox O2 Delivery O2 Flow Rate FiO2 12/13/24 08:00 106 12/13/24 07:42 208.6 0 0 0 Ambu-Bag 0 0 12/13/24 07:35 104 14 96 Mechanical Ventilator+ 100 100 12/13/24 07:35 93.7 104 14 120/38 (65) 96 93.7 12/13/24 07:15 112/55 12/13/24 07:15 112/55 12/13/24 07:06 101 12/13/24 07:00 93.4 96 13 88/53 (65) 97 93.4 12/13/24 07:00 88/53 12/13/24 07:00 88/53 12/13/24 06:45 93.0 99 13 92/34 (53) 97 93.0 12/13/24 06:30 92.8 98 13 91/41 (58) 97 92.8 12/13/24 06:15 92.8 98 13 86/30 (48) 97 92.8 12/13/24 06:15 86/30 12/13/24 06:15 86/30 12/13/24 06:07 Mechanical Ventilator+ 100 100 12/13/24 06:00 92.8 97 14 97/30 (52) 94 92.8 12/13/24 06:00 97/30 12/13/24 05:53 97 27 94/29 (50) 98 100 12/13/24 05:45 93.0 97 14 95/26 (49) 94 93.0 12/13/24 05:30 93.2 94 24 88/29 (48) 94 93.2 12/13/24 05:15 93.6 94 24 106/35 (58) 95 93.6 12/13/24 05:15 102/33 12/13/24 05:11 95 12/13/24 05:00 94.6 99 24 126/46 (72) 87 94.6 12/13/24 05:00 126/46 12/13/24 04:45 95.0 71 24 75/27 (43) 87 95.0 12/13/24 04:45 79/27 12/13/24 04:30 60 24 100/68 (79) 86 100 12/13/24 04:21 60 12/13/24 04:06 98.1 135 20 53/17 (29) 93 98.1 12/13/24 04:01 98.1 0 0 0/0 0 98.1 Laboratory Tests Test 12/13/24 04:09 12/13/24 05:30 12/13/24 07:35 White Blood Count 22.5 10^3/uL (4.4-10.8) H Lactic Acid Level 11.9 mmol/L (0.4-2.0) *H 10.6 mmol/L (0.4-2.0) *H Medications Medications Dose Ordered Sig/Asif Route Start Time Stop Time Status Last Admin Dose Admin Ceftriaxone Sodium 50 ml @ 100 mls/hr ONCE ONCE IV 12/13/24 05:30 12/13/24 05:59 DC 12/13/24 06:00 100 MLS/HR Epinephrine HCl 250 ml @ 7.5 mls/hr Q24H IV 12/13/24 05:00 12/13/24 05:00 37.5 MLS/HR Norepinephrine Bitartrate 250 ml @ 3.75 mls/hr Q24H IV 12/13/24 04:45 12/13/24 04:45 18.75 MLS/HR Phenylephrine HCl 250 ml @ 30 mls/hr Q8H20M IV 12/13/24 07:00 12/13/24 07:00 30 MLS/HR Sodium Chloride 1,000 ml @ 130 mls/hr Q7H42M IV 12/13/24 06:30 12/13/24 06:30 130 MLS/HR Vasopressin 20 units/Sodium Chloride 100 ml @ 9 mls/hr Q11H7M IV 12/13/24 05:45 12/13/24 06:15 9 MLS/HR Assessment/Plan Assessment/Plan Assessment: Cardiac arrest with successful resuscitation, Pulmonary Fibrosis, CHF, Plan: Admit to ICU, Companionate extubation, Plan discussed with: Patient, Daughter, Son My Orders Orders - JOSE DANIEL SMITH Procedure Category Date Status Time Admit ADMIT 12/13/24 Transmitted 08:52 Code Status CODE 12/13/24 Transmitted 08:52 Npo (Nothing By DIET 12/13/24 Transmitted Mouth) Diet Breakfast Condition: Unstable TERRENCE 12/13/24 Transmitted 08:52 Date of Service: Dec 13, 2024 Billing Provider: JOSE DANIEL SMITH Common Visit Codes: [id number] INP/OBS CARE (HIGH) JOSE DANIEL SMITH Dec 13, 2024 09:33
[2024-12-13 10:15] VITALS: O2SAT 90
[2024-12-13 10:30] VITALS: TEMP 96.8
[2024-12-13 11:13] VITALS: BP 108/42; PULSE 92; RESP 12
[2024-12-13] MEDS: HYDROmorphone HCL 2 MG/ML VL/or syr IV PRN (11:13)
--- NOTE | 2024-12-13 13:17 | DVHDS2 ---
Discharge Summary Date of Admission Dec 13, 2024 at 08:52 Date of Discharge: Dec 13, 2024 Admitting Diagnosis Cardiac arrest with successful resuscitation, Labs/Diagnostic Data: Laboratory Results Test 12/13/24 07:35 12/13/24 06:01 12/13/24 05:30 12/13/24 05:00 Lactic Acid Level 10.6 mmol/L (0.4-2.0) Troponin I High Sensitivity 2695 ng/L (</=34) Blood Gas Specimen Type Arterial Blood Gas Sample Site Left brachial Blood Gas Patient Temperature 37.0 Arterial Blood Date Drawn [id number] Arterial Blood pH 6.922 (7.350-7.450) Arterial Blood Partial Pressure CO2 64.0 mmHg (32.0-45.0) Arterial Blood Partial Pressure O2 130.1 mmHg (83.0-108.0) Arterial Blood HCO3 12.9 mmol/L (21.0-28.0) Arterial Blood Oxygen Saturation 95.7 % (94.0-98.0) Arterial Blood Base Excess -19.6 mmol/L (-2.0-3.0) Arterial Blood Oxyhemoglobin 94.6 % (94.0-98.0) Arterial Blood Carboxyhemoglobin 0.3 % (0.5-1.5) Arterial Blood Methemoglobin 0.9 % (0.0-1.5) Enrique Test N/a Blood Gas Total Hemoglobin 11.40 g/dL (12.0-16.0) Blood Gas Set Respiration Rate 24.0 Blood Gas Modality Vent - ac FiO2 % 100.0 Blood Gas Tidal Volume 300.0 Blood Gas PEEP or CPAP 5.0 Blood Gas Critical Value Read Back yes Blood Gas Notified Whom peter Luis md Blood Gas Notified Time [id number] Blood Gas Notified By Adult Day Care Worker dane diaz Prothrombin Time 20.5 sec (9.3-11.8) Prothrombin Time INR 2.08 (0.9-1.15) Influenza Type A Antigen Negative (Negative) Influenza Type B Antigen Negative (Negative) SARS-CoV-2 Antigen (Rapid) Negative (NEGATIVE) Test 12/13/24 04:09 White Blood Count 22.5 10^3/uL (4.4-10.8) Red Blood Count 3.56 10^6/uL (4.0-5.20) Hemoglobin 10.5 g/dL (12.2-16.2) Hematocrit 34.4 % (36.0-46.0) Mean Corpuscular Volume 96.5 fL (80.0-100.0) Mean Corpuscular Hemoglobin 29.4 pg (28.0-32.0) Mean Corpuscular Hemoglobin Concent 30.4 g/dL (32.0-36.0) Red Cell Distribution Width 17.1 % (11.8-14.3) Platelet Count 82 10^3/uL (140-450) Mean Platelet Volume 8.6 fL (6.9-10.8) Neutrophils (%) (Auto) % (37.0-80.0) Lymphocytes (%) (Auto) % (10.0-50.0) Monocytes (%) (Auto) % (0.0-12.0) Basophils (%) (Auto) % (0.0-2.0) Neutrophils # (Auto) 10 ^3/uL (1.6-8.6) Lymphocytes # (Auto) 10 ^3/uL (0.4-5.4) Monocytes # (Auto) 10 ^3/uL (0-1.3) Differential Total Cells Counted 100.0 (100) Neutrophils % (Manual) 28 (37.0-80.0) Band Neutrophils % (Manual) 2 Lymphocytes % (Manual) 58 (10.0-50.0) Monocytes % (Manual) 8 (0-12) Eosinophils % (Manual) 3 (0-7) Basophils % (Manual) 0 (0.0-2.0) Metamyelocytes % (manual) 0 Myelocytes % (Manual) 1 Promyelocytes % (Manual) 0 Blast Cells % (Manual) 0 Reactive Lymphocytes 0 Platelet Estimate Decreased Sodium Level 147 mmol/L (136-145) Potassium Level 5.4 mmol/L (3.5-5.1) Chloride Level 105 mmol/L (98-107) Carbon Dioxide Level 23 mmol/L (20-31) Anion Gap 19 (5-15) Blood Urea Nitrogen 19 mg/dL (9-23) Creatinine 1.02 mg/dL (0.550-1.02) Glomerular Filtration Rate Calc 58 mL/min (>90) BUN/Creatinine Ratio 18.6 (10.0-20.0) Serum Glucose 208 mg/dL (74-106) Calcium Level 9.6 mg/dL (8.7-10.4) Magnesium Level 2.6 mg/dL (1.6-2.6) Total Bilirubin 0.5 mg/dL (0.2-1.0) Aspartate Amino Transferase (AST) 5194 U/L (13-40) Alanine Aminotransferase (ALT) 2779 U/L (7-40) Alkaline Phosphatase 136 U/L (46-116) B-Type Natriuretic Peptide 249.94 pg/mL (0-100) Total Protein 5.5 g/dL (5.7-8.2) Albumin 2.9 g/dL (3.2-4.8) Lipase 31 U/L (12-53) Thyroid Stimulating Hormone (TSH) 13.76 uIU/mL (0.55-4.78) Plasma/Serum Blood Alcohol < 3.0 mg/dL (<10) Other Laboratory Tests 12/13/24 04:09 Brief Hx & Hospital Course: Virginie Whiting is a 74-year-old female with past medical history of pulmonary fibrosis, and CHF, who was brought to the hospital VIA EMS with CPR in progress. The family states she was discharged home on hospice from [place] about 2 weeks ago. This morning she got up to use the restroom and on her way back she fell to the ground. Her daughter was there and states she did not respond to her and just had a blank stare. She called for her other siblings to help. They called the hospice company and were told there was nothing to do. So they then called EMS. When EMS arrived the family told them she is a DNR, but did not have the paperwork readily available so EMS states they had to do everything. Patient was brought to the ER, intubated, CPR continued. Patient had multiple code blues while in the ER. The ER provider did speak with the family and make the patient a DNR. On my arrival and assessment the patient was intubated, on 4 vasopressors, and no sedation with no meaningful neurological responses. Family was at the bedside and states that she never wanted any of this and would like to make her comfortable. Will do a compassionate extubation once all family is able to arrive. Compassionate extubation completed and time of 1037. Condition at Discharge: Undetermined Final Diagnosis/Problems List S/P CPR, Pulmoary fibrosis Discharge Disposition: at Hospital Discharge Statement: ASSESSMENT ASSESSMENT Assessment Date of Service: Dec 13, 2024 Billing Provider: JEFF SETHI Common Visit Codes: [id number] INP/OBS CARE (HIGH) JOSE DANIEL SMITH HOTEL MANAGER Dec 13, 2024 13:17
[2024-12-13] MEDS ORDERED: SODIUM BICARB IV ONE (14:51)
== END 2024-12-13 10:37 | DRG 208 ==
LOC: EDBD 04:01 → ER 04:01 → OVERFLOW 08:52
PROVIDERS: ADMIT Nurse Practitioner Family; ATTEND Nurse Practitioner Family
PROC: 5A1935Z Respiratory Ventilation, Less than 24 Consecutive Hours (ICD-10-PCS; principal; 2024-12-13)
PROC: 5A12012 Performance of Cardiac Output, Single, Manual (ICD-10-PCS; 2024-12-13)
DX: J84.10 Pulmonary fibrosis, unspecified (principal); J96.01 Acute respiratory failure with hypoxia; I21.A1 Myocardial infarction type 2; I42.9 Cardiomyopathy, unspecified; E87.20 Acidosis, unspecified; I46.9 Cardiac arrest, cause unspecified; Z20.822 Contact with and (suspected) exposure to COVID-19; I50.9 Heart failure, unspecified; Z66 Do not resuscitate; Z88.5 Allergy status to narcotic agent
CPT/HCPCS: 36415; 36556; 71045; 80053; 80320; 83605; 83690; 83735; 83880; 84443; 84484; 85007; 85027; 85610; 87040; 87426; 87804; 93005; 94002; 96365; 96367; 96368; 99291; G0378; J0169